=== PATIENT | male | born 1965 | race Caucasian/White ===

== ENCOUNTER 2016-08-18 05:35 | Emergency (ER) | payer OTHER ==
[~2016-08-18] VITALS: Ht 198.1 cm; Wt 124.7 kg
[~2016-08-18 05:35] MED LIST: CYCLOBENZAPRINE10 M1 PO; LEVO-T100 MCG PO; LOSARTAN POTASS50 M1 PO; METFORMIN HCL1000 M1 PO; PRILOSEC OTC20 M1 PO; SIMVASTATIN20 M2 PO; ZOFRAN ODT4 M1 SL
--- NOTE | 2016-08-18 05:58 | ED GI/GU/ABDOMINAL COMPLAINT ---
History of Present Illness General Chief Complaint: Nausea, Vomiting, Diarrhea Stated Complaint: NVD X 4 DAYS Source: patient, old records Exam Limitations: no limitations Vital Signs & Intake/Output Vital Signs & Intake/Output Vital Signs Date Time Temp Pulse Resp B/P Pulse O2 O2 Flow FiO2 Ox Delivery Rate 08/18 0705 97.2 59 18 149/89 98 08/18 0544 97.2 92 20 161/99 99 Room Air Allergies Coded Allergies: NO KNOWN ALLERGIES (NKA) (10/24/10) Reconcile Medications Cyclobenzaprine HCl 10 MG TABLET 1 TAB PO 4 TIMES/DAY PRN MUSCLE SPASM Levothyroxine Sodium (Levo-T) 100 MCG TABLET 1 TAB PO DAILY THYROID (Reported ) Losartan Potassium 50 MG TABLET 1 TAB PO DAILY HTN (Reported) Metformin HCl 1,000 MG TABLET 1 TAB PO BID DM (Reported) Omeprazole Magnesium (Prilosec Otc) 20 MG TABLET.DR 1 TAB PO DAILY BURNING STOMACH PAIN Ondansetron (Zofran Odt) 4 MG TAB.RAPDIS 1 TAB SL TID PRN NAUSEA Simvastatin (Simvastatin*) 20 MG TABLET 1 TAB PO QPM CHOL (Reported) Triage Note: PT TO ED C/O 4 DAYS OF ABDOMINAL PAIN, VOMITING, DIARRHEA, FEVER, CHILLS, BODY ACHES, COUGH, SOB, AND HEADACHE. PT DENIES CP. Triage Nurses Notes Reviewed? yes Onset: 4 days Duration: day(s):, constant, continues in ED Timing: recent history Quality/Severity: aching, moderate, vomiting Location: epigastric Radiation: no radiation Activities at Onset: none Prior Abdominal Problems: none Past Sexual History: Unobtainable at this time Modifying Factors: Worsens With: eating. Associated Symptoms: abdominal pain, diarrhea, loss of appetite, nausea/vomiting HPI: 4 days prior to admission patient complains of generalized abdominal cramping moderate to severe associated with nausea vomiting frequent loose watery stool unable to tolerate liquids. He denies fever chills chest pain cough shortness of breath headache dysuria rash bleeding Past History Travel History Traveled to [place] past 21 day No Medical History Any Pertinent Medical History? see below for history Neurological: NONE EENT: NONE Cardiovascular: HTN,CHOL Gastrointestinal: NONE Hepatic: NONE Renal: NONE Musculoskeletal: NONE Psychiatric: NONE Endocrine: diabetes Surgical History Surgical History: none Psychosocial History What is your primary language Norwegian Tobacco Use: Quit >30 days ago Family History Hx Contributory? No Review of Systems Review of Systems Constitutional: Reports: no symptoms. EENTM: Reports: no symptoms. Respiratory: Reports: no symptoms. Cardiovascular: Reports: no symptoms. GI: Reports: see HPI, abdominal pain, diarrhea, nausea, vomiting. Genitourinary: Reports: no symptoms. Musculoskeletal: Reports: no symptoms. Skin: Reports: no symptoms. Neurological/Psychological: Reports: no symptoms. Hematologic/Endocrine: Reports: no symptoms. Immunologic/Allergic: Reports: no symptoms. All Other Systems: Reviewed and Negative Physical Exam Physical Exam General Appearance: well developed/nourished, alert, awake, anxious, moderate distress Head: atraumatic, normal appearance Eyes: Bilateral: normal appearance, PERRL, EOMI, normal inspection. Ears, Nose, Throat, Mouth: hearing grossly normal, dry mucous membranes Neck: normal inspection, supple, full range of motion, normal alignment Respiratory: normal breath sounds, chest non-tender, no respiratory distress, quiet respiration, lungs clear Cardiovascular: regular rate/rhythm, normal peripheral pulses, norml femoral pulses equa Peripheral Pulses: 4+ carotid (R), 4+ carotid (L) Gastrointestinal: normal bowel sounds, soft, non-tender, no organomegaly Male Genitals: normal genitalia Back: normal inspection, normal range of motion Extremities: normal range of motion, no ligament instability Neurologic/Psych: no motor/sensory deficits, awake, alert, oriented x 3, normal gait, normal mood/affect, teaching artist II-XII nml as tested Skin: intact, normal color, warm/dry Core Measures ACS in differential dx? No Severe Sepsis Present: No Septic Shock Present: No Progress Differential Diagnosis: biliary colic, gastritis, PUD/GERD Plan of Care: Orders Procedure Date/time Status LIPASE 08/18 556 Complete COMPREHENSIVE METABOLIC PANEL 08/18 556 Complete CBC WITHOUT DIFFERENTIAL 08/18 556 Complete Laboratory Tests 08/18/16 0602: Anion Gap 10, Estimated GFR > 60, BUN/Creatinine Ratio 18.8, Glucose 247 H, Calcium 9.5, Total Bilirubin 3.7 H, AST 23, ALT 47, Alkaline Phosphatase 68, Total Protein 6.8, Albumin 4.3, Globulin 2.5, Albumin/Globulin Ratio 1.7, Lipase 166, CBC w Diff NO MAN DIFF REQ, RBC 5.72, MCV 85.7, MCH 29.4, RDW 14.1, MPV 10.4, Gran % 70.0, Lymphocytes % 17.6 L, Monocytes % 8.3, Eosinophils % 3.8, Basophils % 0.3, Absolute Granulocytes 5.7, Absolute Lymphocytes 1.4, Absolute Monocytes 0.7 H, Absolute Eosinophils 0.3, Absolute Basophils 0, PUBS MCHC 34.3 Initial ED EKG: none Comments: Improved after interventions Departure Departure Time of Disposition: 0800 Disposition: HOME OR SELF CARE Condition: Stable Clinical Impression Primary Impression: Nausea, vomiting, and diarrhea Secondary Impressions: Abdominal pain Qualifiers: Abdominal location: unspecified location Qualified Code: R10.9 - Unspecified abdominal pain Dehydration syndrome Referrals: RUMA LLANES MD (PCP/Family) Additional Instructions: Clear liquids in small amounts for 12-24 hours until better Departure Forms: Customer Survey General Discharge Information Prescriptions: Current Visit Scripts Ondansetron (Zofran Odt) 1 TAB SL TID PRN nausea #15 TAB Hyoscyamine Sulfate (Levsin-Sl) 1-2 TAB SL Q4P PRN abdominal cramps diarrhea #30 TAB Tramadol HCl (Ultram) 1-2 TAB PO Q6PRN PRN severe pain #30 TAB
[2016-08-18 06:12] LABS: ABSOLUTE BASOPHIL COUNT 0 /CUMM (0.0-0.2); ABSOLUTE EOSINOPHIL COUNT 0.3 /CUMM (0.0-0.7); ABSOLUTE GRANULOCYTE CT 5.7 /CUMM (1.4-6.5); ABSOLUTE LYMPH COUNT 1.4 /CUMM (1.2-3.4); ABSOLUTE MONOCYTE COUNT 0.7 /CUMM (0.10-0.60); BASOPHIL % 0.3 % (0.0-2.0); EOSINOPHIL % 3.8 % (0-5); MEAN CORPUSCULAR HGB 29.4 PG (27.0-31.0); MEAN CORPUSCULAR HGB CONC 34.3 G/DL (33.0-37.0); MEAN CORPUSCULAR VOLUME 85.7 FL (80.0-94.0); MEAN PLATELET VOLUME 10.4 FL (7.4-10.4); PLATELET COUNT 174 /CUMM (130-400); RBC DISTRIBUTION WIDTH 14.1 % (11.5-14.5); RED BLOOD CELL CT 5.72 /CUMM (4.70-6.10); WHITE BLOOD CELL COUNT 8.1 /CUMM (4.8-10.8)
[2016-08-18 07:05] VITALS: BP 149/89
[2016-08-18] MEDS ORDERED: ULTRAM50 M1 PO (07:13)
[2016-08-18] MEDS ORDERED: ZOFRAN ODT4 M1 SL (07:13)
[2016-08-18] MEDS ORDERED: LEVSIN-SL0.125 MG SL (07:13)
== END 2016-08-18 07:48 ==
LOC: ERH 05:35
PROVIDERS: Emergency Medicine
DX: R11.2 Nausea with vomiting, unspecified (principal); R19.7 Diarrhea, unspecified; R10.13 Epigastric pain
CPT/HCPCS: 85520; 96374; 96375; J1200; J2405

== ENCOUNTER 2017-10-24 10:48 | Emergency (ER) | payer OTHER ==
[~2017-10-24] VITALS: Ht 198.1 cm; Wt 108.9 kg
[~2017-10-24 10:48] MED LIST changes: +LEVSIN-SL0.125 MG SL; +METFORMIN HCL1000 M2 PO; +ULTRAM50 M1 PO
[2017-10-24 11:20] LABS: ABSOLUTE BASOPHIL COUNT 0 /CUMM (0.0-0.2); ABSOLUTE EOSINOPHIL COUNT 0.6 /CUMM (0.0-0.7); ABSOLUTE GRANULOCYTE CT 5.6 /CUMM (1.4-6.5); ABSOLUTE LYMPH COUNT 1.7 /CUMM (1.2-3.4); ABSOLUTE MONOCYTE COUNT 0.5 /CUMM (0.10-0.60); BASOPHIL % 0.4 % (0.0-2.0); EOSINOPHIL % 6.7 % (0-5); GRANULOCYTE % 66.6 % (42.2-75.2); HEMATOCRIT 52.3 % (42-52); MEAN CORPUSCULAR HGB 29.2 PG (27.0-31.0); MEAN CORPUSCULAR HGB CONC 33.9 G/DL (33.0-37.0); MEAN CORPUSCULAR VOLUME 86.1 FL (80.0-94.0); PLATELET COUNT 213 /CUMM (130-400); RBC DISTRIBUTION WIDTH 13.1 % (11.5-14.5); RED BLOOD CELL CT 6.08 /CUMM (4.70-6.10); WHITE BLOOD CELL COUNT 8.4 /CUMM (4.8-10.8)
[2017-10-24 14:30] VITALS: BP 146/91
--- NOTE | 2017-10-24 14:50 | ED GENERAL ADULT ---
History of Present Illness General Chief Complaint: General Adult Stated Complaint: "MY BS IS HIGH" Source: patient Exam Limitations: no limitations Vital Signs & Intake/Output Vital Signs & Intake/Output Vital Signs Date Time Temp Pulse Resp B/P B/P Pulse O2 O2 Flow FiO2 Mean Ox Delivery Rate 10/24 1430 98.1 58 20 146/91 99 Room Air 10/24 1058 98.8 64 20 144/99 98 Room Air Allergies Coded Allergies: NO KNOWN ALLERGIES (NKA) (10/24/10) Reconcile Medications Levothyroxine Sodium (Levo-T) 100 MCG TABLET 1 TAB PO DAILY THYROID (Reported ) Losartan Potassium 50 MG TABLET 1 TAB PO DAILY HTN (Reported) Losartan Potassium 50 MG TABLET 1 TAB PO DAILY HTN Losartan Potassium (Cozaar) 50 MG TABLET 1 TAB PO DAILY htn Metformin HCl 1,000 MG TABLET 1 TAB PO BID DM (Reported) Metformin HCl (Metformin HCl ER) 1,000 MG TAB.ER.24 1 TAB PO DAILY DM Metformin HCl 850 MG TABLET 1 TAB PO BID diabetes Simvastatin (Simvastatin*) 20 MG TABLET 1 TAB PO QPM CHOL (Reported) Triage Note: PT STATES BS WAS 425 AT HOME, STATES HE DOESN'T HAVE A PMD OR MEDS FOR DIABETES. HAS APPT AT [address] ON SUNDAY. BS HERE 360. PT STATES HE HAS BEEN VERY DIZZY AND NO ENERGY Triage Nurses Notes Reviewed? yes Onset: Gradual Duration: day(s): (1) Timing: recent history Injury Environment: home Severity: moderate HPI: Patient is a 52-year-old male with history of diabetes presenting to the emergency department with chief complaint of "I ran out of medications". Blastocyst morning. Patient reports that he checked his blood glucose till today and it was over 457 to come in for evaluation. Patient denies any nausea vomiting fevers or chills chest pain or shortness of breath. He has an appointment with a primary care physician on Sunday of next week. Came today because he ran out of meds and because his blood glucose level. Patient received fluids at triage. Blood glucose went from 360-250. Patient has no headaches. No visual changes. No complaints at this time. Past History Travel History Traveled to [place] past 21 day No Medical History Any Pertinent Medical History? see below for history Neurological: NONE EENT: NONE Cardiovascular: HTN,CHOL Gastrointestinal: NONE Hepatic: NONE Renal: NONE Musculoskeletal: NONE Psychiatric: NONE Endocrine: diabetes Surgical History Surgical History: none Psychosocial History What is your primary language Slovenian Tobacco Use: Current Daily Use Daily Tobacco Use Amount/Type: => 5 Cigarettes daily ETOH Use: denies use Illicit Drug Use: denies illicit drug use Family History Hx Contributory? No Review of Systems Review of Systems Constitutional: Reports: no symptoms. Comments Review of systems: See HPI, All other systems negative. Constitutional, no chills fever or weight loss HEENT: No visual changes no sore throat no congestion Cardiovascular: No chest pain ,palpitation , orthopnea or ankle swelling Skin, no jaundice no rashes Respiratory: No dyspnea cough sputum or hemoptysis GI: No nausea no vomiting : No dysuria No hematuria Muscle skeletal: no back pain, no neck pain, Neurologic: No numbness no confusion no headaches Psych: No stress anxiety or depression,. Heme/endocrine: No bruising no bleeding no polyuria or polydipsia Immunology: No splenectomy or history of AIDS Physical Exam Physical Exam General Appearance: well developed/nourished, no apparent distress, alert, awake , comfortable Comments: Well-developed well-nourished person in no acute distress HEENT: Atraumatic, normocephalic, moist oral mucosa. No airway edema noted. Clearing secretions without difficulties. Neck: Normal inspection, full range of motion. Back: Nontender Cardiovascular: Regular rate and rhythms no murmurs rubs or gallops, normal JVP Respiratory: Chest nontender. No respiratory distress.scattered wheezing to auscultation bilaterally at the bases bilaterally. Extremity: No edema Neuro: Alert oriented x3 Skin: No appreciable rash on exposed skin, skin is warm and dry. Psych: Mood and affect is normal, memory and judgment is normal. Core Measures ACS in differential dx? No CVA/TIA Diagnosis: No Sepsis Present: No Sepsis Focused Exam Completed? No Progress Differential Diagnoses I considered the following diagnoses in my evaluation of the patient: Uncontrolled diabetes, hyperglycemia, medication noncompliance, DKA Plan of Care: Orders Procedure Date/time Status FingerStick- Glucose 10/24 1453 Active URINALYSIS 10/24 1333 Complete COMPREHENSIVE METABOLIC PANEL 10/24 1112 Complete CBC WITHOUT DIFFERENTIAL 10/24 1112 Complete ACETONE 10/24 1112 Complete Laboratory Tests 10/24/17 1340: Urinalysis LIGHT H, Urine Color YEL, Urine Clarity HAZY H, Urine pH 6.0, Ur Specific [place] 1.025, Urine Protein NEG, Urine Ketones TRACE H, Urine Nitrite NEG, Urine Bilirubin NEG, Urine Urobilinogen 0.2, Ur Leukocyte Esterase NEG, Ur Microscopic SEDIMENT EXAMINED, Urine RBC 1-3, Urine WBC RARE, Ur Epithelial Cells RARE, Urine Bacteria FEW H, Urine Mucus FEW, Urine Hemoglobin NEG, Urine Glucose >=1000 H 10/24/17 1113: Anion Gap 10, Estimated GFR > 60, BUN/Creatinine Ratio 17.5, Glucose 336 H, Calcium 10.1, Total Bilirubin 2.1 H, AST 14 L, ALT 25, Alkaline Phosphatase 73 , Total Protein 6.7, Albumin 4.2, Globulin 2.5, Albumin/Globulin Ratio 1.7, CBC w Diff NO MAN DIFF REQ, RBC 6.08, MCV 86.1, MCH 29.2, MCHC 33.9, RDW 13.1, MPV 10.0, Gran % 66.6, Lymphocytes % 19.9 L, Monocytes % 6.4, Eosinophils % 6.7 H, Basophils % 0.4, Absolute Granulocytes 5.6, Absolute Lymphocytes 1.7, Absolute Monocytes 0.5, Absolute Eosinophils 0.6, Absolute Basophils 0, Acetone Level NEGATIVE Blood glucose level is 269 after 2 L IV fluids. Patient is asymptomatic. Acetone negative. No gap. Only trace ketones in the urine. Patient will be started on metformin 875 twice daily instead of metformin 1000 g daily. He'll continue losartan 50 mg daily. He has a primary care physician appointment on Sunday, they will adjust medications as needed. Also he will follow up with endocrinology. pt nontoxic. Initial ED EKG: none Departure Departure Time of Disposition: 1453 Disposition: HOME OR SELF CARE Condition: Stable Clinical Impression Primary Impression: Hyperglycemia Secondary Impressions: Tobacco abuse counseling Referrals: Patient Has No Primary Care Dr (PCP/Family) Kyle RODRIGEZ,Siobhan Additional Instructions: Follow-up with your scheduled appointment for the primary care physician on Sunday. Also follow-up with endocrinology to help regulate diabetes. Continue taking previously prescribed medications of metformin and losartan. Increase fluids. Eat a well-balanced diet. Departure Forms: Customer Survey General Discharge Information Prescriptions: Current Visit Scripts Metformin HCl 1 TAB PO BID #30 TAB Losartan Potassium (Cozaar) 1 TAB PO DAILY #30 TAB Critical Care Note Critical Care Note Critical Care Time: non-applicable
[2017-10-24] MEDS ORDERED: COZAAR50 M1 PO (15:00)
[2017-10-24] MEDS ORDERED: METFORMIN HCL850 M1 PO (15:00)
== END 2017-10-24 15:10 ==
LOC: ERH 10:48
PROVIDERS: Emergency Medicine
DX: E11.65 Type 2 diabetes mellitus with hyperglycemia (principal); F17.210 Nicotine dependence, cigarettes, uncomplicated
CPT/HCPCS: 81001